=== PATIENT | female | born 1960 | race American Indian/Alaskan Native ===

== ENCOUNTER 2020-01-24 09:32 | Outpatient (CLI) | payer OTHER ==
--- NOTE | 2020-01-24 11:04 | XRay Report ---
THORACIC SPINE 2 VIEWS INDICATION: BACK PAIN. COMPARISON: None. IMPRESSION: Normal alignment. Moderate anterior spurring and mild disc space narrowing is noted thr oughout the mid and lower thoracic spine. No acute osseous or soft tissue abnormality. LUMBOSACRAL SPINE 2 VIEWS INDICATION: BACK PAIN. COMPARISON: None. IMPRESSION: Normal alignment. Mild degenerative disc narrowing and marginal spurring is identified at L1-2, L2-3 and L3-4. Moderate diffuse facet arthropathy with hypertrophic changes is evident which is most pronounced at L3-4 and L4-5. No acute osseous or soft tissue abnormality. Signer Name: Malvin Driver Jr, MD Signed: 01/24/2020 10:59 AM Workstation Name: [id number]
== END 2020-01-24 09:33 | disposition home or self-care (01) ==
LOC: XRAY 09:32
PROVIDERS: ATTEND Internal Medicine
DX: M47.816 Spondylosis without myelopathy or radiculopathy, lumbar region (principal); M48.05 Spinal stenosis, thoracolumbar region; M46.04 Spinal enthesopathy, thoracic region; E66.9 Obesity, unspecified; G43.909 Migraine, unspecified, not intractable, without status migrainosus
CPT/HCPCS: 72070; 72100